=== PATIENT | female | born 1960 | race African-American/Black ===

== ENCOUNTER 2016-11-29 08:03 | Day surgery (SDC) | payer OTHER ==
--- NOTE | 2016-11-23 10:20 | HP ---
Admitting History and Physical - Primary Care Physician PCP: Flory Potter - Admission Chief Complaint: Left breast atypia History of Present Illness: 56 year old postmenapausal female with screening mammogram prior to consult for reduction which showed bilateral calcifications. Stereotactic core biopsy right breast 09/21/2016 was negative. left stereotctic core biopsy 10/05/2016 showed atypia lateral (T shape clip ). The other left breast stereotactic core was negative upper region. History Source: Patient Limitations to Obtaining History: No Limitations - Past Medical History Cardiovascular: Yes: HTN, Hyperlipdemia Endocrine: Yes: Hypothyroidism, Other (IDDM) - Past Surgical History Past Surgical History: Yes: Cholecystectomy (Lap CCY), (Right breast core biopsy) Home Medications - Allergies Allergies/Adverse Reactions: Allergies Allergy/AdvReac Type Severity Reaction Status Date / Time No Known Allergies Allergy Verified 11/23/16 10:23 - Home Medications Home Medications (free text): atorovastatin,amlodipine,enalapril,levothyroxine, HumulinR and NPH. Hydrochlorothiazide,humolog Family Disease History - Family Disease History Family History: Unremarkable Physical Examination Constitutional: Yes: Well Nourished Breast(s): Yes: Other (pendulous breast bilaterally no palpable masses or adnopathy post biopsy changes bilaterally) Problem List - Problems (1) Atypical ductal hyperplasia of left breast Code(s): N60.92 - UNSPECIFIED BENIGN MAMMARY DYSPLASIA OF LEFT BREAST
[2016-11-25 12:01] VITALS: BMI 43.6
[2016-11-29] MEDS ORDERED: LIDOCAINE HCL 1%, 10 MG/ML (20ML VIAL) ONE (10:21)
[2016-11-29] MEDS ORDERED: BUPIVACAINE HCL 0.25% 125 MG/50 ML VIAL ONE (10:21)
[2016-11-29] MEDS ORDERED: MIDAZOLAM HCL 2 MG/2 ML SINGLE DOSE VIAL ONE (10:49)
[2016-11-29] MEDS ORDERED: ISOSULFAN BLUE 10 MG/ML VIAL SQ ONE (10:51)
[2016-11-29] MEDS ORDERED: PROPOFOL 20 ML ONE ×2 (11:10)
[2016-11-29] MEDS ORDERED: LIDOCAINE HCL/PF 2% SDV 5ML VIAL ONE ×2 (11:10→12:33)
[2016-11-29] MEDS ORDERED: ceFAZolin SODIUM 1 GM VIAL ONE (11:21)
[2016-11-29] MEDS ORDERED: ONDANSETRON 4 MG/2 ML VIAL ONE ×2 (12:27→12:28)
[2016-11-29] MEDS ORDERED: GUM MASTIC/STORAX/MSAL/ALCOHOL 1 DRP DROPSBTL MC ONE (12:28)
[2016-11-29] MEDS ORDERED: LIDOCAINE HCL 1%, 10 MG/ML (20ML VIAL) IJ ONE (12:33)
[2016-11-29] MEDS ORDERED: BUPIVACAINE HCL/PF 0.25% (2.5MG/ML) 10 ML VIAL IJ ONE (12:34)
[2016-11-29] MEDS ORDERED: PROMETHAZINE HCL 25 MG/1 ML VIAL IVPUSH PRN (12:47)
[2016-11-29] MEDS ORDERED: ONDANSETRON 4 MG/2 ML VIAL IVPUSH PRN (12:47)
[2016-11-29] MEDS ORDERED: KETOROLAC TROMETHAMINE 30 MG/1 ML VIAL IVPUSH PRN (12:55)
[2016-11-29] MEDS ORDERED: ONDANSETRON 4 MG/2 ML VIAL IVPB PRN (12:55)
[2016-11-29] MEDS ORDERED: PATIENT'S OWN MEDICATION (NON-FORMULARY) (Insulin Regular, Human [Humulin R U-500 Kwikpen] SQ PRN (12:56)
[2016-11-29] MEDS ORDERED: DEXTROSE 5%-0.45% SALINE 1,000 ML IV SCH (13:00)
[2016-11-29] MEDS ORDERED: LACTATED RINGERS SOLUTION 1,000 ML IV SCH (13:00)
[2016-11-29 15:32] VITALS: BP 128/74; PULSE 81; TEMP 98
[2016-11-29] MEDS ORDERED: INSULIN DETEMIR 100 UNITS/ML MDV SQ SCH (16:30)
[2016-11-30] MEDS ORDERED: LEVOTHYROXINE NA 100 MCG TABLET (FP) PO SCH (07:00)
--- NOTE | 2016-11-30 09:14 | OP ---
DATE OF OPERATION: 11/29/2016 PREOPERATIVE DIAGNOSES: Left breast atypia. POSTOPERATIVE DIAGNOSES: Left breast atypia. PROCEDURE: Left breast wide excision with needle localization. SURGEON: Dr. Potter LUMBER CARRIER OPERATOR: ANESTHESIA: General. ANESTHESIOLOGIST: Mart Lynch SPECIMEN: Left breast tissue and additional deep tissue. ESTIMATED BLOOD LOSS: Minimal. INDICATION FOR PROCEDURE: The patient is a 56-year-old female who had a screening mammogram prior to breast reduction which showed bilateral calcifications. Stereotactic biopsy in the left breast at 3 oclock showed atypia. She was recommended surgical excision. The procedure, risks, and complications were discussed with her prior to surgery. PROCEDURE: The patient was taken to breast imaging where she underwent localization of the clip in the left lateral breast. She was then taken to ambulatory surgery where informed consent was obtained. Sequential compression devices were placed on both legs. She was taken to the operating room and placed on the operating table in the supine position. She received antibiotics prior to surgery. She was intubated. The left breast was prepped and draped in the usual fashion. Examination of the left breast showed a localizing wire at 3 oclock. A time-out was performed. The skin was infiltrated with 1% lidocaine. An incision was made around the localizing wire. The dissection was continued down towards the chest wall. Once the tip of the needle was reached the specimen was removed and labeled with silk sutures with a long stitch laterally and a short stitch superiorly. A specimen radiograph showed 1 clip but did not show the 2nd clip which was in close proximity on the image. It was unclear whether this was the clip that was targeted because the clips were difficult to distinguish on the radiograph. Additional tissue was taken from the deep region of the dissection. It was labeled with a suture at the biopsy cavity side. The specimen radiograph showed the 2nd clip in this specimen. Both specimens were placed in formalin and sent to pathology. The wound was irrigated and inspected for hemostasis. Once hemostasis was satisfactory, the incision was closed. The deep tissue was closed with interrupted sutures of 3-0 Vicryl. The dermis was closed with interrupted sutures of 3-0 Vicryl. The skin was infiltrated with 0.25% Marcaine. The skin was then closed with a running subcuticular closure of 4-0 Monocryl. The patient tolerated the procedure well. At the end of the procedure all sponge and instrument counts were correct. She was awakened and taken to the recovery area in satisfactory condition. Catalino [id number] MTDD
[2016-11-30] MEDS ORDERED: HYDROCHLOROTHIAZIDE 25 MG TABLET (FP) PO SCH (10:00)
[2016-11-30] MEDS ORDERED: OMEGA-3 ACID ETHYL ESTERS (FATTY-ACIDS) 1 GM CAPSULE (FP) PO SCH (10:00)
[2016-11-30] MEDS ORDERED: ENALAPRIL MALEATE 10 MG TABLET (FP) PO SCH (10:00)
[2016-11-30] MEDS ORDERED: amLODIPine BESYLATE 10 MG TABLET (FP) PO SCH (10:00)
[2016-11-30] MEDS ORDERED: ATORVASTATIN CA 10 MG TABLET (FP) PO SCH (22:00)
--- NOTE | 2016-12-02 16:50 | PATH ---
Surgical Pathology Report Patient Name: AUTUMN MARTIN [facility]. Rec. #: [id number] /Age/Gender: 1960 (Age: 56) / F Account: [id number] Location: [facility] Taken: 11/29/2016 Received: 11/29/2016 Reported: 12/02/2016 Physicians: Flory Potter M.D. Specimen(s) Received A: LEFT BREAST WIDE EXCISION B: LEFT BREAST DEEP MARGIN Clinical History Atypia Final Diagnosis A. BREAST, LEFT, WIDE EXCISION: FOCAL ATYPICAL DUCTAL HYPERPLASIA (ADH) ARISING IN ASSOCIATION WITH PROLIFERATIVE FIBROCYSTIC CHANGES AND COLUMNAR CELL CHANGE WITH ASSOCIATED CALCIFICATIONS. PRIOR BIOPSY SITE CHANGES ARE PRESENT. SKIN WITH NO PATHOLOGIC FINDINGS. B. BREAST, LEFT, DEEP MARGIN, EXCISION: BENIGN BREAST TISSUE SHOWING COLUMNAR CELL CHANGE. Electronically Signed Dede Sorensen M.D. Gross Description A. Received in formalin, labeled "left breast wide excision" is an 8 x 6.3 x 1.5 cm portion of fibrofatty tissue with a localizing needle in place, with a long suture indicating the lateral margin and a short suture indicating the superior margin, per the surgeon. There is 0.7 x 0.2 cm strip of skin at the anterior aspect. The specimen is inked as follows: superior, blue; inferior, green; deep, black; medial, yellow; lateral, orange. Sectioning reveals a focally hemorrhagic area with surrounding fibrous tissue at one aspect of the specimen. A metallic clip is identified within this focus. Remaining specimen is comprised predominantly of unremarkable adipose tissue. Central Service Tech sections are submitted in ten cassettes as follows: 1-6: hemorrhagic focus and surrounding fibrous tissue (including superior, inferior, deep margins); 7&8:skin; 9&10: truck sales representative sections, remaining tissue with superior, inferior, medial and lateral margins. B. Received in formalin, labeled "left breast deep margin" is a 2.5 x 2.4 x 0.5 cm portion of fibrofatty tissue with a suture indicating the new margin, per the surgeon. The new margin is inked black. The specimen is serially sectioned and entirely submitted in three cassettes. Time to formalin fixation: 30 minutes Total formalin fixation time: approximately 32 hours
== END 2016-11-29 15:00 | disposition home or self-care (01) ==
LOC: FASU 08:03
PROVIDERS: ATTEND Surgery
PROC: 0HBU0ZZ Excision of Left Breast, Open Approach (ICD-10-PCS; principal; 2016-11-29 11:27)
DX: N60.92 Unspecified benign mammary dysplasia of left breast (principal); N64.89 Other specified disorders of breast; I10 Essential (primary) hypertension; E78.5 Hyperlipidemia, unspecified; E03.9 Hypothyroidism, unspecified; E11.9 Type 2 diabetes mellitus without complications; Z79.4 Long term (current) use of insulin
CPT/HCPCS: 19281; 88307-TC; 94760

== ENCOUNTER 2017-01-30 05:54 | Day surgery (SDC) | payer OTHER ==
[2017-01-24 14:06] VITALS: BMI 42.9
[2017-01-30] MEDS ORDERED: SUCCINYLCHOLINE CHLORIDE 200 MG/10 ML VIAL ONE (06:57)
[2017-01-30] MEDS ORDERED: PROPOFOL 20 ML ONE ×13 (06:57→12:58)
[2017-01-30] MEDS ORDERED: MIDAZOLAM HCL 2 MG/2 ML SINGLE DOSE VIAL ONE (06:58)
[2017-01-30] MEDS ORDERED: ROCURONIUM BROMIDE 50 MG/5 ML VIAL ONE (06:58)
[2017-01-30] MEDS ORDERED: ONDANSETRON 4 MG/2 ML VIAL ONE (07:02)
[2017-01-30] MEDS ORDERED: DEXAMETHASONE SOD PHOSPHATE 4 MG/1 ML VIAL ONE (07:02)
[2017-01-30] MEDS ORDERED: HEPARIN NA (PORCINE) 5,000 UNITS/ML 1ML VIAL ONE (08:11)
[2017-01-30] MEDS ORDERED: ceFAZolin SODIUM 1 GM VIAL ONE ×2 (08:29→12:15)
[2017-01-30] MEDS ORDERED: PHENYLEPHRINE HCL 10 MG/1 ML SINGLE DOSE VIAL ONE ×2 (08:31→09:54)
[2017-01-30] MEDS ORDERED: HEPARIN NA (PORCINE) 5,000 UNITS/ML 1ML VIAL SQ ONE (08:45)
[2017-01-30] MEDS ORDERED: HYDROmorphone HCL/PF 1 MG/ML VIAL (FOR PYXIS CHARGING ONLY) ONE (08:46)
[2017-01-30] MEDS ORDERED: NEOSTIGMINE METHYLSULFATE 0.5 MG/ML - 10 ML MDV ONE (12:37)
[2017-01-30] MEDS ORDERED: GLYCOPYRROLATE 0.2 MG/1 ML VIAL ONE (12:37)
[2017-01-30] MEDS ORDERED: ONDANSETRON 4 MG/2 ML VIAL IVPB PRN (14:32)
[2017-01-30] MEDS ORDERED: ONDANSETRON 4 MG/2 ML VIAL IVPUSH PRN (14:41)
--- NOTE | 2017-01-30 14:43 | OP ---
Operative Note - Note: Operative Date: 01/30/17 Pre-Operative Diagnosis: bilateral symptomatic macromastia Operation: bilateral breast reduction with incidental lipoma removal right breast Findings: incidental lipomatous mass right breast Post-Operative Diagnosis: Other (symptomatic macromastia wiht right breast lipoma) Surgeon: Shoaib Miner Anesthesia: General Specimens Removed: bilateral breasts tissue with right side lipoma Estimated Blood Loss (mls): 200 Drains & Tubes with Location: lelia x 1 each side
[2017-01-30] MEDS ORDERED: LACTATED RINGERS SOLUTION 1,000 ML IV SCH ×2 (14:45)
[2017-01-30] MEDS ORDERED: HYDROmorphone *PCA* 10MG/50ML DISP.SYRIN PCA SCH (14:45)
--- NOTE | 2017-01-30 14:51 | SURG ---
Surgery Nuclear Control Operator Note Nuclear Control Operator: Dede Vaughn PA-C Date of Service: 01/30/17 Diagnosis: macromastia Procedure: Bilateral breast reduction I was present for the entirety of the operative procedure. For further detail, please refer to operative report. Visit type - Case Type Case Type: Scheduled Admission - Emergency Emergency Visit: No - New patient This patient is new to me today: Yes Date on this admission: 01/30/17
[2017-01-30] MEDS ORDERED: CEFAZOLIN 1 GM/D5W 50 ML IVPB SCH (15:00)
[2017-01-30] MEDS ORDERED: HYDROmorphone *PCA* 10MG/50ML DISP.SYRIN PCA ONE (16:41)
[2017-01-30] MEDS: INSULIN SLIDING SCALE (NOVOLOG) 1 VIAL SQ SCH (17:13)
[2017-01-30] MEDS: CEFAZOLIN 1 GM/D5W 50 ML IVPB SCH (21:23)
[2017-01-30] MEDS: HEPARIN NA (PORCINE) 5,000 UNITS/ML 1ML VIAL SQ SCH (21:23)
[2017-01-31] MEDS: CEFAZOLIN 1 GM/D5W 50 ML IVPB SCH ×2 (02:19→09:26)
[2017-01-31 05:42] VITALS: TEMP 98.4
[2017-01-31] MEDS: INSULIN SLIDING SCALE (NOVOLOG) 1 VIAL SQ SCH ×2 (06:21→11:55)
[2017-01-31] MEDS ORDERED: LEVOTHYROXINE NA 100 MCG TABLET (FP) PO SCH (07:00)
[2017-01-31] MEDS: HEPARIN NA (PORCINE) 5,000 UNITS/ML 1ML VIAL SQ SCH (09:27)
--- NOTE | 2017-01-31 09:34 | PN ---
Progress Note (short form) - Note Progress Note: vss af all tissues viable ok for discharge home with DVT prophylaxix.
[2017-01-31] MEDS ORDERED: amLODIPine BESYLATE 10 MG TABLET (FP) PO SCH (10:00)
[2017-01-31] MEDS ORDERED: PATIENT'S OWN MEDICATION (NON-FORMULARY) (Enalapril Maleate [Vasotec] 20 MG) PO SCH (10:00)
[2017-01-31] MEDS ORDERED: ENALAPRIL MALEATE 10 MG TABLET (FP) PO SCH (10:00)
--- NOTE | 2017-01-31 10:10 | OP ---
DATE OF OPERATION: 01/30/2017 TITLE OF PROCEDURE: Bilateral reduction mammoplasty with separate procedure, incidental removal of a [id number] lipoma on right breast. PREOPERATIVE DIAGNOSIS: Bilateral symptomatic macromastia. POSTOPERATIVE DIAGNOSIS: Bilateral symptomatic macromastia. ATTENDING SURGEON: Shoaib Miner MD ANCIENT ART CURATOR: MELANY Pena SECOND CREMATORY OPERATOR: MELANY Paige The patient is marked in the holding area for an inverted-T Rojas-type pattern, inferior pedicle breast reduction. She is counseled and fully understands the potential risks of nipple nonviability. She is awake and aware of all incisions and resulting scars. All risks, benefits, and alternatives to the procedure are discussed including DVT. Patient is given 5000 units of subcutaneous heparin preoperatively. Patient is given 2 g of Ancef preoperatively. Sequential compression stockings and MAGGIE hose were applied in the holding area. DESCRIPTION OF PROCEDURE: Patient is then brought to the operating room, placed in supine position. She is padded appropriately. Position is carefully checked by surgical and anesthesia teams. Sebastian catheter is placed, which is removed at the end of the procedure. The patient is then prepped and draped in standard surgical fashion. A timeout is called. Patient, procedure, site, and side are verified. At this point, the nipples are traced bilaterally with a [id number] cookie cutter. Additionally, the pedicles are marked. Inferior pedicles are planned with pedicle width of 12 cm bilaterally. The breasts are placed under tourniquet where the pedicles are de-epithelialized with the exception of the nipple-areolar complexes. At this point, the tourniquets are removed, and attention is directed toward first the left breast. Skin flaps are elevated superiorly, medially, and laterally down to the level of the chest wall. The pedicle was then developed on an inferiorly based pedicle but also taking care not to undercut the pedicle and preserve all perforating vasculature from the pectoralis muscle. This pedicle dissection was performed with the PEAK PlasmaBlade to minimize thermal damage to the pedicle. The pedicle, after its dissection, is bleeding robustly from its most distal edges. Hemostasis is meticulously achieved. The skin is tailor tacked, and attention is then directed toward the contralateral right side where a mirror-image procedure is performed. However, on the right side, an incidental lipoma was identified deep within the breast in the superior lateral quadrant of the breast, deep, close to the pectoralis major fascia. The lipoma is dissected separately and handed off as a separate specimen. The skin flaps are completed. Pedicle dissection is completed, and the remaining tissue between the pedicle and the skin flaps is then removed. The weight of each breast its final volume is on the left side 1335 g and on the right side 1550 g. The skin is tailor tacked. Patient is brought to a seated upright position where symmetry of size and shape is found to be good. Hemostasis is once again meticulously achieved. All wounds are copiously irrigated with normal saline. Size 10 flat drains are brought out through the lateral extent of the incisions. Closure is then performed after the pedicles are pexied medially with 2-0 Vicryl suture. Closure is performed with a half-buried mattress 2-0 nylon suture at the inverted-T position. The vertical and horizontal limbs are closed with a series of interrupted buried deep dermal 3-0 Monocryl suture, followed by a running subcuticular 3-0 Monocryl suture. The nipple-areolar inset is performed with a series of interrupted buried deep dermal 3-0 Monocryl suture, followed by a running subcuticular 4-0 Monocryl suture. The incision lines are dressed with half-inch Steri-Strips, 4 x 4 gauze, and ABD gauze. The drains are secured with 2-0 silk drain sutures, covered with Biopatch. The patient is placed in a surgical bra, awoken from anesthesia. Nipples are viable at the end of the procedure. Transferred to recovery without complication. Catalino [id number]
[2017-01-31 10:17] VITALS: BP 132/58; PULSE 85
--- NOTE | 2017-01-31 11:15 | PN ---
Progress Note (short form) - Note Progress Note: 56F POD1 s/p bilateral breast reduction under GA-ETT doing well. Pt states that pain is well controlled with dilaudid IV AIR BAG BUILDER, and reports no anesthetic complications. As pt being discharged today, will d/c AIR BAG BUILDER, order oral pain medication.
[2017-01-31] MEDS ORDERED: ATORVASTATIN CA 10 MG TABLET (FP) PO SCH (22:00)
--- NOTE | 2017-02-03 10:17 | PATH ---
Surgical Pathology Report Patient Name: AUTUMN MARTIN [facility]. Rec. #: [id number] /Age/Gender: 1960 (Age: 56) / F Account: [id number] Location: [facility] Taken: 01/30/2017 Received: 01/30/2017 Reported: 02/03/2017 Physicians: Shoaib Miner Specimen(s) Received A: LEFT BREAST TISSUE AND SKIN B: RIGHT BREAST TISSUE AND SKIN C: RIGHT BREAST MASS Clinical History A Symptomatic bilateral macromastia Final Diagnosis A. BREAST AND SKIN, LEFT, EXCISION: BENIGN BREAST TISSUE WITH SMALL FIBROADENOMA, CHANGES OF PRIOR BIOPSY, AND PROLIFERATIVE FIBROCYSTIC AND FIBROADENOMATOID CHANGES INCLUDING: COLUMNAR CELL CHANGE, SCLEROSING ADENOSIS, CYST FORMATION, STROMAL FIBROSIS, AND MICROCALCIFICATIONS WITHIN BENIGN DUCTS. SKIN WITHOUT PATHOLOGIC FINDINGS. B. BREAST AND SKIN, RIGHT, EXCISION: BENIGN BREAST TISSUE WITH PROLIFERATIVE FIBROCYSTIC AND FIBROADENOMATOID CHANGES INCLUDING: COLUMNAR CELL CHANGE, SCLEROSING ADENOSIS, CYST FORMATION, APOCRINE METAPLASIA, FOCAL USUAL DUCTAL HYPERPLASIA, AND MICROCALCIFICATIONS WITHIN BENIGN DUCTS. SKIN WITHOUT PATHOLOGIC FINDINGS. C. BREAST, RIGHT, MASS, EXCISION: BENIGN BREAST TISSUE WITH PROLIFERATIVE FIBROCYSTIC AND FIBROADENOMATOID CHANGES INCLUDING: COLUMNAR CELL CHANGE, CYST FORMATION, SCLEROSING ADENOSIS, STROMAL FIBROSIS, AND MICROCALCIFICATIONS WITHIN BENIGN DUCTS. Electronically Signed Sheryl Comre M.D. Gross Description A. Received in formalin labeled "left breast tissue and skin 1335 g," is a 23.0 x 20.0 x 7.5 cm aggregate of multiple irregular, unoriented portions of fibroadipose tissue and brown, unremarkable skin. Sectioning reveals a focal previous biopsy cavity surrounded by firm fibrous tissue and fat necrosis. The remaining breast parenchyma displays multifocal dense, white, firm fibrous tissue. Electrical Maintenance Mechanic sections are submitted in 10 cassettes. B. Received in formalin labeled "right breast tissue and skin 1330 g," is a 36.5 x 15.0 x 4.5 cm aggregate of multiple orourke-yellow, irregular, unoriented portions of fibroadipose tissue and brown, unremarkable skin. Sectioning reveals multifocal dense, white, firm fibrous tissue. Electrical Maintenance Mechanic sections are submitted in 6 cassettes. C. Received in formalin labeled "right breast mass," is a 223 g, 11.3 x 11.3 x 3.8 cm irregular, unoriented portion of fibroadipose tissue. There is no needle localization wire present. There is no skin or nipple present. The specimen is inked blue and serially sectioned. Sectioning reveals multifocal dense, white, firm fibrous tissue. No definitive mass is identified. Electrical Maintenance Mechanic sections are submitted in 12 cassettes. 02/01/2017 [facility]02/01/2017
== END 2017-01-31 13:00 | disposition home or self-care (01) ==
LOC: FASU 05:54 → FM/S 17:32 → FASU 01-31 13:00
PROVIDERS: ATTEND Plastic Surgery
PROC: 0HBUXZZ (ICD-10-PCS; 2017-01-30)
PROC: 0HBV0ZZ Excision of Bilateral Breast, Open Approach (ICD-10-PCS; principal; 2017-01-30 08:14)
DX: N62 Hypertrophy of breast (principal); D17.1 Benign lipomatous neoplasm of skin and subcutaneous tissue of trunk
CPT/HCPCS: 88305-TC; 94010; 94760; J1644

== ENCOUNTER 2022-06-12 22:00 | Observation (INO) | payer OTHER ==
[2022-06-12] MEDS ORDERED: SODIUM CHLORIDE 1,000 ML IV SCH (22:30)
[2022-06-12 23:15] LABS: BASO % 0.3 % (0-2.0); EOS % 3.7 % (0-4.5); HEMATOCRIT 32.4 % (32.4-45.2); HEMOGLOBIN 10.2 GM/dL (10.7-15.3); LYMPH % 27.1 % (8-40); MCH 26.5 pg (25.7-33.7); MCHC 31.5 g/dl (32.0-36.0); MEAN CELL VOLUME 84.4 fl (80-96); MEAN PLT VOLUME 9.5 fl (7.5-11.1); MONO % 9.2 % (3.8-10.2); NEUT % 59.7 % (42.8-82.8); PLATELET COUNT 311 10^3/uL (134-434); RBC 3.83 M/mm3 (3.60-5.2); RDW 15.2 % (11.6-15.6); WHITE BLOOD COUNT 8.7 K/mm3 (4.0-10.0)
[2022-06-12 23:28] LABS: INR 1.11 (0.83-1.09); PROTHROMBIN TIME (PATIENT) 12.9 SEC (9.7-13.0)
[2022-06-12 23:31] LABS: ACTIVATED PTT 29.9 SECONDS (25.2-36.5); ALBUMIN 2.6 g/dl (3.4-5.0)
[2022-06-12 23:32] LABS: BLOOD UREA NITROGEN 26.3 mg/dL (7-18)
[2022-06-12 23:34] LABS: CREATININE 1.2 mg/dL (0.55-1.3)
[2022-06-12 23:36] LABS: TOT PROT 6.9 g/dl (6.4-8.2)
[2022-06-12 23:37] LABS: BILIRUBIN,TOTAL 1.1 mg/dL (0.2-1)
[2022-06-13] MEDS ORDERED: ASPIRIN 81 MG CHEWABLE TABLETS ONE (01:19)
[2022-06-13] MEDS ORDERED: ASPIRIN 81 MG CHEWABLE TABLETS PO ONE (01:19)
[2022-06-13] MEDS ORDERED: SODIUM CHLORIDE 500 ML IV STA (01:23)
[2022-06-13] MEDS: SODIUM CHLORIDE 1,000 ML IV SCH (01:40)
[2022-06-13 06:55] LABS: CALCIUM 8.1 mg/dL (8.5-10.1)
[2022-06-13 06:57] LABS: BLOOD UREA NITROGEN 18.4 mg/dL (7-18); MAGNESIUM 1.4 mg/dL (1.8-2.4)
[2022-06-13 07:00] LABS: CREATININE 0.8 mg/dL (0.55-1.3); PHOSPHOROUS 2.8 mg/dL (2.5-4.9)
[2022-06-13 07:54] LABS: EPI CELLS 10 /uL (0-25.1); HYALINE CASTS 0 /uL (0-3.1); PH,URINE 5.5 (5.0-8.0); URINE APPEARANCE CLOUDY; URINE BACTERIA 7810 /uL (0-1359); URINE BILIRUBIN NEGATIVE (NEGATIVE); URINE COLOR YELLOW; URINE GLUCOSE (UA) 1+ (NEGATIVE); URINE KETONE NEGATIVE (NEGATIVE); URINE LEUK ESTERASE 1+ (NEGATIVE); URINE NITRITE NEGATIVE (NEGATIVE); URINE PROTEIN 1+ (NEGATIVE); URINE RBC 9 /uL (0-23.9); URINE WBC 63 /uL (0-25.8)
[2022-06-13 15:38] VITALS: BMI 35.0
[2022-06-13] MEDS: ATORVASTATIN CA 80 MG TABLET (FP) PO SCH (21:28)
[2022-06-13] MEDS ORDERED: INSULIN (LEVEMIR) 100 UNITS/ML UNITS SQ SCH (22:00)
[2022-06-14] MEDS: LEVOTHYROXINE NA 112 MCG TABLET (FP) PO SCH (06:58)
[2022-06-14] MEDS: FAMOTIDINE 20 MG TABLET PO SCH (09:22)
[2022-06-14] MEDS: EZETIMIBE 10 MG TABLET (FP) PO SCH (09:22)
[2022-06-14] MEDS: ENALAPRIL MALEATE 10 MG TABLET PO SCH (09:30)
[2022-06-14] MEDS ORDERED: GABAPENTIN 300 MG CAPSULE PO SCH (10:00)
[2022-06-14] MEDS ORDERED: PATIENT'S OWN MEDICATION (NON-FORMULARY) (Linagliptin [Tradjenta] 5 MG Tablet) PO SCH (10:00)
[2022-06-14] MEDS ORDERED: BACLOFEN 10 MG TABLET (FP) PO SCH (10:00)
[2022-06-14] MEDS ORDERED: INSULIN (LEVEMIR) 100 UNITS/ML UNITS SQ SCH (10:33)
[2022-06-14] MEDS ORDERED: GABAPENTIN 400 MG CAPSULE PO SCH (10:34)
[2022-06-14] MEDS: SODIUM CHLORIDE 1,000 ML IV SCH (11:08)
[2022-06-14 13:47] LABS: BLOOD UREA NITROGEN 9.5 mg/dL (7-18); CALCIUM 8.4 mg/dL (8.5-10.1); MAGNESIUM 1.4 mg/dL (1.8-2.4)
[2022-06-14 13:50] LABS: CREATININE 0.7 mg/dL (0.55-1.3)
[2022-06-14] MEDS: INSULIN (NOVOLOG) ASPART 100 UNITS/ML 10ML VIAL SQ SCH ×2 (16:30→21:34)
[2022-06-14] MEDS ORDERED: POTASSIUM CHLORIDE ORAL LIQUID 20 MEQ/15 ML PO ONE (19:51)
[2022-06-14] MEDS ORDERED: MAGNESIUM SULF 50% (8.12 MEQ/2 ML-1 GM VIAL) IVPB ONE (19:51)
[2022-06-14] MEDS ORDERED: amLODIPine BESYLATE 5 MG TABLET (FP) PO ONE (20:02)
[2022-06-14] MEDS: ATORVASTATIN CA 80 MG TABLET (FP) PO SCH (21:27)
[2022-06-14] MEDS: INSULIN (LEVEMIR) 100 UNITS/ML UNITS SQ SCH (21:33)
[2022-06-15] MEDS: SODIUM CHLORIDE 1,000 ML IV SCH (02:00)
[2022-06-15 03:25] VITALS: RESP 18
[2022-06-15] MEDS: INSULIN (NOVOLOG) ASPART 100 UNITS/ML 10ML VIAL SQ SCH ×2 (06:11→11:43)
[2022-06-15] MEDS: LEVOTHYROXINE NA 112 MCG TABLET (FP) PO SCH (06:53)
[2022-06-15 08:37] VITALS: BP 146/69; PULSE 72; TEMP 98.6
[2022-06-15] MEDS: ENALAPRIL MALEATE 10 MG TABLET PO SCH (09:20)
[2022-06-15] MEDS: FAMOTIDINE 20 MG TABLET PO SCH (09:20)
[2022-06-15] MEDS: EZETIMIBE 10 MG TABLET (FP) PO SCH (09:20)
[2022-06-15] MEDS: INSULIN (LEVEMIR) 100 UNITS/ML UNITS SQ SCH (10:00)
[2022-06-15] MEDS ORDERED: ENOXAPARIN NA (PORCINE) 40 MG/0.4 ML DISP.SYRIN SQ SCH (10:00)
[2022-06-15] MEDS ORDERED: amLODIPine BESYLATE 5 MG TABLET (FP) PO SCH (10:00)
== END 2022-06-15 15:18 | disposition home or self-care (01) ==
LOC: JER 22:00 → JERBED 06-13 01:10 → UNDOADMOB 06-13 01:10 → INTOOBSV 06-13 01:10 → JERBED 06-13 13:33 → J4W 06-13 13:33 → JERBED 06-15 09:54 → J4W 06-15 09:54
PROVIDERS: ADMIT Internal Medicine; ATTEND Internal Medicine
PROC: 3E023GC Introduction of Other Therapeutic Substance into Muscle, Percutaneous Approach (ICD-10-PCS; principal; 2022-06-15)
PROC: 3E023GC Introduction of Other Therapeutic Substance into Muscle, Percutaneous Approach (ICD-10-PCS; 2022-06-15)
PROC: 3E013VG Introduction of Insulin into Subcutaneous Tissue, Percutaneous Approach (ICD-10-PCS; 2022-06-15)
PROC: 3E033GC Introduction of Other Therapeutic Substance into Peripheral Vein, Percutaneous Approach (ICD-10-PCS; 2022-06-15)
PROC: 3E0337Z Introduction of Electrolytic and Water Balance Substance into Peripheral Vein, Percutaneous Approach (ICD-10-PCS; 2022-06-15)
DX: U07.1 COVID-19 (principal); I10 Essential (primary) hypertension; E11.9 Type 2 diabetes mellitus without complications; R26.81 Unsteadiness on feet; G62.9 Polyneuropathy, unspecified; E03.9 Hypothyroidism, unspecified; D64.9 Anemia, unspecified
CPT/HCPCS: 0241U-QW; 36415; 70450-TC; 70496-TC; 70498-TC; 70547-TC; 70551-TC; 71045-TC-FY; 80048; 80053; 80061; 81003; 82550; 82553; 82728; 82962; 83036; 83615; 83735; 84100; 84443; 84484; 85025; 85610; 85730; 86140; 86850; 86900; 86901; 93005; 93010; 96361; 96372; 96374; 97116-GP; 97162-GP; 99285-25; G0378; J0475